=== PATIENT | female | born 1990 | race Caucasian/White ===

== ENCOUNTER 2018-11-06 15:20 | Outpatient (CLI) ==
[2018-10-04 18:37] VITALS: BMI 25.8
--- NOTE | 2018-11-06 16:14 | DI ---
EXAM: Three views of the right ankle. History: Right ankle pain. Findings: No acute fracture or dislocation. No abnormal calcifications or radiopaque foreign bodies . Joint spaces are preserved. Lateral soft tissue swelling and ankle joint effusion. Impression: 1. No acute osseous abnormality. 2. Lateral soft tissue swelling and ankle joint effusion
--- NOTE | 2018-11-06 16:17 | DI ---
EXAM: Three views of the right foot. History: Right foot pain. Findings: No acute fracture or dislocation. No abnormal calcifications or radiopaque foreign bodies . Joint spaces are preserved. Ankle joint effusion is seen. There is lateral soft tissue swelling at the ankle. Impression: No acute osseous abnormality
== END 2018-11-06 15:21 | disposition home or self-care (01) ==
LOC: RAD 15:20
PROVIDERS: ATTEND Nurse Practitioner Family
DX: M25.571 Pain in right ankle and joints of right foot (principal)